=== PATIENT | male | born 1980 | race Caucasian/White ===

== ENCOUNTER 2017-05-29 07:58 | Day surgery (SDC) | payer MEDICARE, MEDICAID ==
[2017-05-29] MEDS ORDERED: Lactated Ringers 1,000 ML IV SCH (08:00)
[2017-05-29] MEDS ORDERED: Propofol 200 MG/20 ML SDV ONE ×2 (08:50→10:00)
[2017-05-29] MEDS ORDERED: fentaNYL 100 MCG/2 ML SDV ONE (08:50)
[2017-05-29] MEDS ORDERED: Midazolam 1 MG/ML 2 ML SDV ONE (08:50)
[2017-05-29] MEDS ORDERED: Glycopyrrolate 0.2 MG/ML 2 ML SDV ONE (09:41)
[2017-05-29 11:08] VITALS: BP 112/65
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
== END 2017-05-29 11:35 | disposition home or self-care (01) ==
LOC: JP.SDS 07:58
PROVIDERS: ATTEND Surgery
DX: K64.8 Other hemorrhoids (principal); K92.1 Melena; Z88.8 Allergy status to other drugs, medicaments and biological substances
CPT/HCPCS: 45378; 46221; J2250; J2704; J3010; J7120; J3490